=== PATIENT | male | born 1945 | race Two or more races ===

== ENCOUNTER 2017-03-21 01:50 | Emergency (ER) | payer OTHER ==
[~2017-03-21] VITALS: Ht 175.3 cm; Wt 80.3 kg
[2017-03-21] MEDS ORDERED: FENTANYL CITRATE/PF 100MCG/2 ML INJ IJ ONE (02:15)
[2017-03-21] MEDS ORDERED: DEXAMETHASONE SOD PHOS 10 MG/1 ML VIAL INJ ONE (02:15)
[2017-03-21] MEDS ORDERED: ONDANSETRON HCL 4 MG ORAL DISINTEGRATING TAB PO ONE (02:15)
[2017-03-21] MEDS ORDERED: BELLADONNA ALK/PHENOBARBITAL 5 ML UDC PO ONE (02:30)
[2017-03-21] MEDS ORDERED: MAGNESIUM/ALUMINUM/SIMETHICONE 30 ML UDC PO ONE (02:30)
[2017-03-21] MEDS ORDERED: LIDOCAINE VISC 2% SOLN 15 ML UDC PO ONE (02:30)
[2017-03-21 02:50] VITALS: BP 128/70
== END 2017-03-21 02:40 | disposition home or self-care (01) ==
LOC: FSED 01:50
DX: M54.2 Cervicalgia (principal); S16.1XXA Strain of muscle, fascia and tendon at neck level, initial encounter; M54.12 Radiculopathy, cervical region
CPT/HCPCS: 96372; 99283; J1100